=== PATIENT | female | born 1950 | race Caucasian/White ===

== ENCOUNTER 2016-10-10 | Emergency (ER) | payer MEDICARE, OTHER | END 2016-10-10 14:07 | disposition home or self-care (01) ==

== ENCOUNTER 2016-11-13 10:58 | Outpatient (CLI) | payer MEDICARE, OTHER | END 2016-11-13 10:59 | disposition home or self-care (01) | DX: Z12.31 Encounter for screening mammogram for malignant neoplasm of breast (principal) ==

== ENCOUNTER 2017-02-03 17:31 | Outpatient (CLI) | payer MEDICARE, OTHER ==
[2017-02-03 17:51] LABS: BASOPHILS # (AUTO) 0.1 10^3/uL (0.0-0.1); BASOPHILS % (AUTO) 1.2 %; EOSINOPHILS # (AUTO) 0.6 10^3/uL (0.0-0.7); EOSINOPHILS % (AUTO) 4.9 %; HCT - HEMATOCRIT 39.1 % (37.0-47.0); HGB - HEMOGLOBIN 12.6 g/dL (12.0-16.0); LYMPHOCYTES # (AUTO) 1.8 10^3/uL (1.5-3.5); LYMPHOCYTES % (AUTO) 16.2 %; MEAN CORPUSCULAR HEMOGLOBIN 30.5 pg (27.0-31.0); MEAN CORPUSCULAR HGB CONC 32.2 g/dL (32.0-36.0); MEAN CORPUSCULAR VOLUME 94.7 fL (81.0-99.0); MONOCYTES # (AUTO) 0.9 10^3/uL (0.0-1.0); MONOCYTES % (AUTO) 7.7 %; NEUTROPHILS # (AUTO) 7.9 10^3/uL (1.5-6.6); NUCLEATED RED BLOOD CELLS AUTO 0.1 /100WBC; RED BLOOD COUNT 4.12 10^6/uL (4.20-5.40); RED CELL DISTRIBUTION WIDTH 13.3 % (12.0-15.0); UNCORRECTED WHITE BLOOD COUNT 11.2 x10^3/uL; WHITE BLOOD COUNT 11.2 x10^3/uL (4.8-10.8)
[2017-02-03 18:09] LABS: ALBUMIN/GLOBULIN RATIO 1.1 (1.0-2.2); BILIRUBIN,TOTAL 0.8 mg/dL (0.2-1.0); CALCIUM 9.1 mg/dL (8.5-10.3); CREATININE 1.1 mg/dL (0.4-1.0); POTASSIUM 3.9 mmol/L (3.5-5.0); TOTAL PROTEIN 7.3 g/dL (6.7-8.2)
[2017-02-03] MEDS ORDERED: IOPAMIDOL-300 100 ML VIAL IVP ONE (19:08)
[2017-02-03] MEDS ORDERED: IOPAMIDOL-300 50 ML VIAL PO ONE (19:08)
--- NOTE | 2017-02-03 20:01 | CT Report ---
EXAM: CT ABDOMEN AND PELVIS EXAM DATE: 02/03/2017 07:19 PM. CLINICAL HISTORY: Left lower quadrant pain COMPARISONS: None. TECHNIQUE: Routine helical CT imaging was performed through the abdomen and pelvis. IV contrast: 85 m L Isovue 300. Enteric contrast: No. Reconstructions: Coronal and sagittal. In accordance with CT protocol optimization, one or more of the following dose reduction techniques w ere utilized for this exam: automated exposure control, adjustment of mA and/or KV based on patient s ize, or use of iterative reconstructive technique. FINDINGS: Lung Bases: 6 x 4 mm right lower lobe nodule. A calcified 4 mm left lower lobe granuloma also noted. No pleural effusion. Liver: Normal. No masses. Gallbladder/Bile Ducts: Unremarkable. Spleen: Normal. Pancreas: Normal. Adrenal Glands: Normal. Kidneys: Normal. No masses or hydronephrosis. Peritoneal Cavity/Bowel: Diverticulosis with mild inflammatory changes and trace fluid surrounding th e sigmoid colon consistent with acute diverticulitis. No evidence of perforation or abscess. No evide nce of appendicitis. Pelvic Organs: The uterus has been removed. No pelvic mass. The urinary bladder is unremarkable. Vasculature: No aneurysms or other significant abnormality. Bones: No significant abnormality. Other: None. IMPRESSION: 1. Uncomplicated sigmoid colon diverticulitis. 2. Right lower lobe 6 mm nodule. If no previous chest CTs available to confirm nodule stability, then a 6-12 month follow-up chest CT is recommended. ALYCE The call report notification system was initiated by Dr. Samuel George at 19:49 hrs on 02/03/17. The above findings were discussed with Dr. Manning by Dr. Samuel George at 19:57 hrs on . Referring Provider Line: [phone] SITE ID: [id number]
== END 2017-02-03 17:32 | disposition home or self-care (01) ==
LOC: DI 17:31
PROVIDERS: ATTEND Physician Assistant
DX: K57.32 Diverticulitis of large intestine without perforation or abscess without bleeding (principal); R91.1 Solitary pulmonary nodule
CPT/HCPCS: 36415; 74177; 80053; 83690; 85025; Q9967